=== PATIENT | male | born 1975 | race Hispanic/Latino ===

== ENCOUNTER 2019-10-07 11:27 | Outpatient (CLI) | payer OTHER ==
--- NOTE | 2019-10-07 18:12 | RAD ---
LUMBAR SPINE 10/07/19 No fracture or disc space narrowing was seen. A bridging osteophyte is seen on the right at L1-L2. Th e SI joints are symmetrical. No vertebral anomalies were seen. IMPRESSION: No acute findings. POS: HOME
--- NOTE | 2019-10-07 18:13 | RAD ---
SACRUM AND COCCYX: 10/07/19 The arcuate lines of the sacrum appear intact. The SI joints appear normal and symmetrical. On the la teral view, the coccyx appears to be normally located and intact. IMPRESSION: No significant finding. POS: HOME
== END 2019-10-07 11:28 | disposition home or self-care (01) ==
LOC: BURRAD 11:27
PROVIDERS: ATTEND Nurse Practitioner Family
DX: M54.9 Dorsalgia, unspecified (principal)
CPT/HCPCS: 72100; 72220